=== PATIENT | female | born 1960 | race Caucasian/White ===

== ENCOUNTER 2022-07-19 11:15 | Outpatient (REF) | payer OTHER, SELFPAY ==
[2022-07-19 13:26] LABS: Anion Gap 16 (12-20); Carbon Dioxide 27 mmol/L (22-29); Chloride 104 mmol/L (96-108); Potassium 4.8 mmol/L (3.3-5.1); Sodium 142 mmol/L (135-145)
[2022-07-19 13:36] LABS: Carbamazepine Tegretol 5.4 mcg/mL (5.0-12.0)
[2022-07-19 13:55] LABS: Phenytoin Dilantin 10.8 ug/mL (10.0-20.0)
== END 2022-07-19 11:16 | disposition home or self-care (01) ==
LOC: HO.LAB 11:15
PROVIDERS: Visit Provider Psychiatry & Neurology Neurology
DX: G40.909 Epilepsy, unspecified, not intractable, without status epilepticus (principal)
CPT/HCPCS: 36415; 80051; 80156; 80185

== ENCOUNTER 2023-06-02 08:13 | Outpatient (REF) | payer OTHER, SELFPAY ==
[2023-06-02 09:48] LABS: Carbamazepine Tegretol 5.4 mcg/mL (5.0-12.0); Phenytoin Dilantin 6.5 ug/mL (10.0-20.0)
== END 2023-06-02 08:14 | disposition home or self-care (01) ==
LOC: HO.LAB 08:13
PROVIDERS: PCP Internal Medicine; Visit Provider Registered Nurse
DX: G40.909 Epilepsy, unspecified, not intractable, without status epilepticus (principal)
CPT/HCPCS: 36415; 80156; 80185

== ENCOUNTER 2023-06-03 09:55 | Outpatient (REF) | payer OTHER, SELFPAY ==
[2023-06-03 11:24] LABS: Phenytoin Dilantin 7.7 ug/mL (10.0-20.0)
== END 2023-06-03 09:56 | disposition home or self-care (01) ==
LOC: HO.LAB 09:55
PROVIDERS: PCP Internal Medicine; Visit Provider Registered Nurse
DX: G40.909 Epilepsy, unspecified, not intractable, without status epilepticus (principal)
CPT/HCPCS: 36415; 80185

== ENCOUNTER 2023-06-16 09:42 | Outpatient (REF) | payer OTHER, SELFPAY ==
[2023-06-16 11:11] LABS: Phenytoin Dilantin 12.1 ug/mL (10.0-20.0)
== END 2023-06-16 09:43 | disposition home or self-care (01) ==
LOC: HO.LAB 09:42
PROVIDERS: Family Medicine Adult Medicine; PCP Internal Medicine; Visit Provider Psychiatry & Neurology Neurology
DX: G40.909 Epilepsy, unspecified, not intractable, without status epilepticus (principal)
CPT/HCPCS: 36415; 80185

== ENCOUNTER 2024-11-26 11:08 | Outpatient (AMB) | payer OTHER, SELFPAY ==
--- NOTE | 2024-11-26 11:24 | A.OFFVIS_ITS ---
Vital Signs 11/26/24 11:28 Height 5 ft Intake Visit Reasons: 6M/SZ Accompanied by: Spouse Allergies No Known Allergies Allergy (Unverified 01/30/20 16:36) HPI Comments Details: Vertigo started back up on 10/24/2024 while at work and lasted about 2 weeks. Took meclizine twice a day for about 1 month. Retired on 11/07/2024. Had another episode of vertigo on 11/23/2024 that lasted one day. Took meclizine for one day. Having some dizziness when walking which she describes as everything swaying and swaying with it. Balance off at times. No recent falls. No seizures. Sleep was not so good. Wakes up during night and has trouble falling back to sleep. Had recurrence of vertigo 05/2023 and 06/2022. No seizures in years or episodes of word searching problems. 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 Mid to lower back pain is better, but acts up periodically. Short term memory problems are better. Depression under control. She reports no side effects from her medications. [facility] Medical History (Updated 11/26/24 @ 11:27 by Laura Bajwa CNP) MCI (mild cognitive impairment) Depression Seizures Review of Systems Const Denies chills, Denies daytime sleepiness, Reports difficulty sleeping, Denies fatigue, Denies fever(s), Denies frequent falls, Denies headache(s), Denies increased appetite, Denies poor appetite, Denies snoring, Denies weakness, Denies weight gain and Denies weight loss Eyes Denies loss of vision ENT Reports vertigo, Reports dizziness, Denies headache(s) and Denies neck pain Card Denies chest pain at rest, Denies chest pain with activity, Denies syncope, Denies leg edema, Denies palpitations, Denies dyspnea and Denies dyspnea on exertion Resp Denies cough, Denies dyspnea, Denies dyspnea on exertion and Denies snoring GI Denies abdominal pain, Denies constipation, Denies heartburn, Denies diarrhea and Denies nausea Denies urinary frequency, Denies urinary incontinence and Denies urinary urgency Musc Denies abnormal gait, Denies back pain, Denies myalgias, Denies arthralgias, Denies neck pain, Denies numbness and Denies tingling Neuro Denies abnormal gait, Reports vertigo, Reports dizziness, Denies syncope, Denies frequent falls, Denies headache(s), Denies lack of coordination, Denies loss of vision, Denies memory loss, Denies numbness, Denies Other visual disturbances, Denies restless legs, Denies seizure-like activity, Denies tingling, Denies paresthesias, Denies tremor(s) and Denies weakness Psych Denies anxiety, Denies depression, Denies auditory hallucinations, Denies memory loss and Denies visual hallucinations Endo Denies fatigue and Denies palpitations Physical Exam Const Other: General Appearance:? normal, in no acute distress. Heart:? S1, S2 normal, no murmurs. Lungs:? clear anteriorly and posteriorly. Musculoskeletal:? normal. Extremities:? no edema. Psych:? alert, oriented, cognitive function intact, cooperative with exam. Neuro Other: Abnormal Neurological Findings:?Broad based gait. Mental Status: alert and oriented X 3. Normal attention, orientation, memory, a nd affect. Cranial Nerves: Pupils are equal, round, and reactive to light. External ocular muscles are intact. Visual van are full, no ptosis. Face is symmetrical, no facial weakness or droop. Facial sensations are normal. Tongue protrudes in midline. Palate elevates symmetrically. Shoulder shrugging is normal Motor Examination: Normal muscle tone, bulk and strength. No atrophy or fasciculations. No drift of the extended upper extremities. DTR 2+. Plantars are flexor. Straight Leg Raisin degrees. Sensory Exam: Normal light touch, temperature, pinprick, vibration, and joint- position sensations. Rhomberg sign is absent. Coordination: No ataxia. No titubation. Hneapf-bz-ttyh, fgav-lauq-thid test, and rapid alternating movements were normal. Gait Exam: As above. Cerebellar Signs: Cwpjaf-ds-zbsd and yxdb-rj-qpod is normal. No dysdiadochokinesia. Extrapyramidal System: No tremor, rigidity with normal facial expressions. No bradykinesia. No bradyphrenia. Normal arm swing and posture. No propulsion or retropulsion. Speech: Normal. No dysphasia or dysarthria. Assessment & Plan Assessment & Plan (1) Seizures: Code(s): R56.9 - Unspecified convulsions Category: Medical Plan: Continue phenytoin 100mg 2 capsules twice a day. Continue carbamazepine 200mg 1 tablet three times a day. Dilantin and Tegrol labs ordered. (2) Vertigo: Code(s): R42 - Dizziness and giddiness Category: Medical Plan: Continue meclizine 25mg every 8 hours as needed. MRI brain ordered. Orders: Orders Phenytoin Dilantin Today R56.9 - Unspecified convulsions Carbamazepine Tegretol Today R56.9 - Unspecified convulsions MR head/brain wo con Today R42 - Dizziness and giddiness Coding Level of Care Code Est Pt Level 4 (73163) Diagnoses Seizures R56.9 Vertigo R42
--- OUTSIDE RECORDS SUMMARY | 2024-11-26 12:33 | XMS_ITS ---
Author Name [facility] Organization Unknown Care Team Organization Name Specialty Phone Email Start Date End Sumeet pleitez [facility] 01/31/2020 01/31/2020
--- OUTSIDE RECORDS SUMMARY | 2024-11-26 12:33 | XMS_ITS | Encounter Summary ---
Author Organization [facility] Address [address] [place] [address] Care Team Providers Care Chain Sales Consultant Name Role Phone Graciela Webb MD Primary Care Prov ider Reason for Referral * Consultation (Routine) - Closed Specialty Diagnoses / Procedures Referred By Contac t Referred To Contact Neurology Diagnoses Epilepsy, unspecified, not intractable, without status epilepticus (CMS/HCC V24, CMS/HCC V28) Graciela Webb MD [address] [place] [id number] Phone: tel: fax: Laura Bajwa NP [address] [place] [address] [place] [address] Phone: tel: fax: Referral ID Status Reason Start Date Expiration Date V isits Requested Visits Authorized [id number] Closed Specialty Services Required 11/21/2024 11/21/2025 6 6 Reason for Visit * Reason Onset Date Comments Referral 11/21/2024 Neurology Insura nhe Referral Encounter Details Date Type Department Care Team ([facility] st Contact Info) Description 11/21/2024 Telephone Adult Medicine [address] [phone] Graciela Webb MD [address] [place] [phone] Referral (Neurology Insurance Referral) Social History Tobacco Use Types Packs/Day Years Used Date Smoking Tobacco: Never Smokeless Tobacco: Never Alcohol Use Standard Drinks/Week Comments No 0 (1 standard drink = 0.6 oz pur e alcohol) Housing Instability Answer Date Recorde d Are you worried that in the next 2 months you may not have stable housing? No 05/19/2024 Food Access & Nutrition Answer Date Rec orded Do you have access to a vari ety of food including fruits and vegetables? Yes 05/19/2024 Access to Healthcare Answer Date Record ed Within the last 3 months, ho w many times did you visit the emergency department for your medical care? 0 05/19/2024 Health Literacy Answer Date Recorded How often do you need to hav e someone help you when you read instructions, pamphlets, or other written material from your doctor or pharmacy? Never 05/19/2024 Caregiver: How often do you need to have someone help you when you read instructions, pamphlets, or other written material from your doctor or pharmacy? Not on file 05/19/2024 Financial Risk Answer Date Recorded How hard is it for you to pa y for the very basics like food, housing, medical care, and air conditioning / heating? Not very hard 05/19/2024 Transportation Answer Date Recorded Has the lack of transportati on kept you from meetings, work, or from getting things needed for daily living? No Has the lack of transportati on kept you from medical appointments or from getting medications? No 05/19/2024 Social Isolation Answer Date Recorded How often do you feel lonely or isolated from th ose around you? Never 05/19/2024 Food Risk Answer Date Recorded Within the past 12 months we worried whether our food would run out before we got money to buy more. Never true 05/19/2024 Within the past 12 months th e food we bought just didn't last and we didn't have money to get more. Never true 05/19/2024 Dependent Care Answer Date Recorded Do you need help finding or paying for care for your loved ones. For example, early childhood specialist or elderly care for an older adult? No 05/19/2024 Education Answer Date Recorded Do you think completing more education or training, like finishing a GED, going to college, or learning a trade, would be helpful for you? No 05/19/2024 Employment and Income Answer Date Recor ded During the last four weeks, have you been actively looking for work? No 05/19/2024 Living Situation Answer Date Recorded What is your living situation? 0 05/19/2024 Comments No Sex and Gender Information Value Date Recorded Sex Assigned at Not on file Legal Sex Female 2:54 AM EST Gender Identity Not on file Sexual Orientation Not on file documented as of this encounter Progress Notes * Emi Judge - 11/21/2024 9:53 AM EDT What insurance does the patient have today? Payor: @[email or web address] Referrals cannot be processed if the insurance is not accurate. If the insurance listed above is NO BILLING INFORMATION FOUND FOR THIS ENCOUNTER then the patients correct insurance must be obtainedand registered in [facility] or their referral can not be processed. Name of person calling to request this referral? Fax -[facility] Sleep Referred To Provider (Include first and last name): Laura Bajwa NPI (if known): [phone] Order/Specialty requested neurology Chief Complaint (Note: This is not a body part or a procedure): G42.954 Has the patient seen provider for this problem/Dx before? Referred To Provider Address: Referred To Provider Referred To Provider Does patient have an appointment scheduled?: yes If yes, what is the date of the appointment?: 11/26/24 Is this a retro request? no Number of visits requested: 12 Is this appointment related to: MVA or worker compensation? no documented in this encounter Plan of Treatment Upcoming Encounters Date Type Department Care Team (Late st Contact Info) Description 12/18/2024 10:30 AM EDT Clinical Support Adult Medicine [place] - [address] [phone] 08/29/2025 1:40 PM EDT Appointment Radiology Department - [address] [phone] 09/08/2025 7:30 AM EDT Office Visit Adult [address] [phone] Graciela Webb MD [address] [place] [address] Scheduled Referrals Name Type Priority Associated Diagnoses Orde r Schedule Ambulatory referral to Neurology Outpatient Referral Routine Epilepsy, unspecified, not intractable, without status epilepticus ([facility] V24, [facility] V28) Expected: 11/21/2024, Expires: 11/21/2025 documented as of this encounter Visit Diagnoses Diagnosis Epilepsy, unspecified, not intractable, without status epilepticus ([facility] V24, [facility] V28)- Primary documented in this encounter Additional Health Concerns Assessment Noted Time PHQ-9 Depression Total Score: 0 05/19/19 2:59 PM EST documented as of this encounter Care Teams Chain Sales Consultant Relationship Specialty Start Date End Date Graciela Webb MD [address] [place] [address] PCP - General Internal Medicine 07/09/24 documented as of this encounter
--- OUTSIDE RECORDS SUMMARY | 2024-11-26 12:33 | XMS_ITS | Clinical Summary ---
Author Organization [facility] Address [address] [place] [address] Care Team Providers Care Can Reforming Machine Operator Name Role Phone Unavailable Primary Care Provider Unavailabl e Social History Tobacco Use Types Packs/Day Years Used Date Smoking Tobacco: Never Assessed Comments Unknown Sex and Gender Information Value Date Recorded Sex Assigned at Not on file Legal Sex Female 2:24 PM EDT Gender Identity Not on file Sexual Orientation Not on file Plan of Treatment Health Maintenance Due Date Last Done Comments Hepatitis C Virus Screening 1960 HIV Screening 11/16/1972 DTaP/Tdap/Td Vaccines (1 - Tdap) 11/16/1978 Pap Smear (Ages 21-65) 11/16/1980 Mammogram 1999 Colonoscopy 11/16/2004 Pneumococcal Vaccines 50+ (1 of 1 - PCV) 11/16/2009 Zoster (Shingles) Vaccine (1 of 2) 11/16/2009 COVID-19 Vaccine ( - 2023-2 5 season) 2024 DXA Bone Density (Females,Ag es 65 and older) 11/16/2024 Influenza Vaccine 12/13/2024 RSV Vaccine 60 years and old er and Patients (1 - 1-dose 75+ series) 11/16/2034 Hepatitis B Vaccines Aged Out No long er eligible based on patient's age to complete this topic Insurance MEDICAID OUT OF STATE [facility] WORKER'S COMP
== END 2024-11-26 11:47 | disposition home or self-care (01) ==
LOC: HO.HSM 11:09
PROVIDERS: PCP Internal Medicine; Referring Provider Internal Medicine; Visit Provider Registered Nurse
DX: R56.9 Unspecified convulsions (principal); R42 Dizziness and giddiness
CPT/HCPCS: 99214

== ENCOUNTER 2024-11-26 11:08 | Outpatient (REF) | payer MEDICARE, SELFPAY ==
[2024-11-26 13:03] LABS: Carbamazepine Tegretol 5.5 mcg/mL (5.0-12.0)
== END 2024-11-26 11:09 | disposition home or self-care (01) ==
LOC: HO.LAB 11:08
PROVIDERS: PCP Internal Medicine; Referring Provider Internal Medicine; Visit Provider Registered Nurse
DX: R42 Dizziness and giddiness (principal); R56.9 Unspecified convulsions; M54.50 Low back pain, unspecified; Z79.899 Other long term (current) drug therapy
CPT/HCPCS: 36415; 80156; 80185

== ENCOUNTER 2024-12-04 19:42 | Outpatient (REF) | payer MEDICARE, SELFPAY ==
--- NOTE | ~2024-12-04 | MR_ITS ---
EXAMINATION: MR BRAIN WITHOUT IV CONTRAST HISTORY: R42 - Dizziness and giddiness TECHNIQUE: Sagittal T1, coronal FLAIR and T2, and axial T1, FLAIR, T2, gradient echo, and diffusion weighted MR images of the brain were obtained. COMPARISON: Comparison is made with the prior examination dated 01/07/2020. FINDINGS: The pituitary is normal in size. The cerebellar tonsils are normally located. 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 There are scattered periventricular and subcortical white matter hyperintensities on the FLAIR and T2-weighted images which are nonspecific, but often seen in the setting of small vessel ischemic disease. There is no mass effect or midline shift. The ventricular system is normal in size and configuration. No intra or extra-axial fluid collections are identified. There are no foci of restricted diffusion. Normal vascular flow voids are noted in the basilar and carotid arteries. The visualized paranasal sinuses are clear. 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 No acute intracranial abnormality. Electronically signed by: Carlos Savage MD 12/05/2024 07:21 AM EDT
== END 2024-12-04 19:43 | disposition home or self-care (01) ==
LOC: HO.MRI 19:42
PROVIDERS: PCP Internal Medicine; Visit Provider Registered Nurse
DX: R42 Dizziness and giddiness (principal)
CPT/HCPCS: 70551

== ENCOUNTER → 2024-12-04 19:43 | Outpatient (BNV) | payer MEDICARE, SELFPAY | PROVIDERS: PCP Internal Medicine; Visit Provider Radiology Diagnostic Radiology | DX: Q04.8 Other specified congenital malformations of brain (principal) | CPT/HCPCS: 70551 ==

== ENCOUNTER 2025-01-10 11:31 | Outpatient (AMB) | payer MEDICARE, SELFPAY ==
--- NOTE | 2025-01-10 12:02 | MHC.OFFVIS ---
Vital Signs 01/10/25 12:13 01/10/25 12:17 Height 5 ft BP 171/84 H 166/85 H Position Sitting Standing Intake Visit Reasons: sooner appt Allergies No Known Allergies Allergy (Unverified 01/10/25 12:07) Medication List - Last Reconciled 01/10/25 by Laura Bajwa CNP carbamazepine 200 mg PO TID ibuprofen 200 mg PO Q6H PRN meclizine 25 mg PO TID PRN multivitamin 1 tab PO DAILY phenytoin sodium extended 200 mg (2 x 100 mg) PO BID 90 days HPI Comments Details: She has been taking meclizine three times a day. Feeling of room swaying or spinning and feeling off balance happening less. Notices more often when it is dark. Had an episode a few weeks ago when standing in kitchen when it was dark, had room spinning and fell. No further falls. Had brief episode today of hallway shifting and swaying after getting off elevator. No seizures. She was scheduled for cataract surgery on 03/19/2025 and 04/16/2025. Had recurrence of vertigo on 10/24/2024 that lasted 2 weeks, took meclizine twice a day for about a month. Had another episode of vertigo on 11/23/2024 that lasted one day. Started with some dizziness when walking which she described as everything swaying and swaying with it in 11/2024. Balance off at times. No seizures. Retired on 11/07/2024. Had recurrence of vertigo 05/2023 and 06/2022. No seizures in years or episodes of word searching problems. Mid to lower back pain is better, but acts up periodically. Short term memory problems are better. Depression under control. She reports no side effects from her medications. [facility] Medical History (Updated 01/10/25 @ 12:34 by Laura Bajwa CNP) MCI (mild cognitive impairment) Depression Seizures Review of Systems Const Denies chills, Denies daytime sleepiness, Reports difficulty sleeping, Denies fatigue, Denies fever(s), Denies frequent falls, Denies headache(s), Denies increased appetite, Denies poor appetite, Denies snoring, Denies weakness, Denies weight gain and Denies weight loss Eyes Denies loss of vision ENT Reports vertigo, Reports dizziness, Denies headache(s) and Denies neck pain Card Denies chest pain at rest, Denies chest pain with activity, Denies syncope, Denies leg edema, Denies palpitations, Denies dyspnea and Denies dyspnea on exertion Resp Denies cough, Denies dyspnea, Denies dyspnea on exertion and Denies snoring GI Denies abdominal pain, Denies constipation, Denies heartburn, Denies diarrhea and Denies nausea Denies urinary frequency, Denies urinary incontinence and Denies urinary urgency Musc Denies abnormal gait, Denies back pain, Denies myalgias, Denies arthralgias, Denies neck pain, Denies numbness and Denies tingling Neuro Denies abnormal gait, Reports vertigo, Reports dizziness, Denies syncope, Denies frequent falls, Denies headache(s), Denies lack of coordination, Denies loss of vision, Denies memory loss, Denies numbness, Denies Other visual disturbances, Denies restless legs, Denies seizure-like activity, Denies tingling, Denies paresthesias, Denies tremor(s) and Denies weakness Psych Denies anxiety, Denies depression, Denies auditory hallucinations, Denies memory loss and Denies visual hallucinations Endo Denies fatigue and Denies palpitations Physical Exam Const Other: General Appearance:? normal, in no acute distress. Heart:? S1, S2 normal, no murmurs. Lungs:? clear anteriorly and posteriorly. Musculoskeletal:? normal. Extremities:? no edema. Psych:? alert, oriented, cognitive function intact, cooperative with exam. Neuro Other: Abnormal Neurological Findings:?Broad based gait. Mental Status: alert and oriented X 3. Normal attention, orientation, memory, and affect. Cranial Nerves: Pupils are equal, round, and reactive to light. External ocular muscles are intact. Visual van are full, no ptosis. Face is symmetrical, no facial weakness or droop. Facial sensations are normal. Tongue protrudes in midline. Palate elevates symmetrically. Shoulder shrugging is normal Motor Examination: Normal muscle tone, bulk and strength. No atrophy or fasciculations. No drift of the extended upper extremities. DTR 2+. Plantars are flexor. Sensory Exam: Normal light touch, temperature, pinprick, vibration, and joint-position sensations. Rhomberg sign is absent. Coordination: No ataxia. No titubation. Gait Exam: As above. Cerebellar Signs: Vdvawm-yo-zjun is okay. Extrapyramidal System: No tremor, rigidity with normal facial expressions. No bradykinesia. No bradyphrenia. Normal arm swing and posture. No propulsion or retropulsion. Speech: Normal. Results Reviewed Results Reviewed: [address] [address] Magnetic Resonance Report Signed Patient: Stephen Vo MR#: [id number] : 1960 Acct:[id number] Age/Sex: 64 / F ADM Date: 12/04/24 Loc: HO.MRI Attending Dr: Laura Bajwa CNP Ordering Physician: Laura Bajwa CNP Date of Service: 12/04/24 Procedure(s): MR head/brain wo con Accession Number(s): [id number] cc: Graciela Hernandez MD; Laura Bajwa CNP~ EXAMINATION: MR BRAIN WITHOUT IV CONTRAST HISTORY: R42 - Dizziness and giddiness TECHNIQUE: Sagittal T1, coronal FLAIR and T2, and axial T1, FLAIR, T2, gradient echo, and diffusion weighted MR images of the brain were obtained. COMPARISON: Comparison is made with the prior examination dated 01/07/2020. FINDINGS: The pituitary is normal in size. The cerebellar tonsils are normally located. 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 There are scattered periventricular and subcortical white matter hyperintensities on the FLAIR and T2-weighted images which are nonspecific, but often seen in the setting of small vessel ischemic disease. There is no mass effect or midline shift. The ventricular system is normal in size and configuration. No intra or extra-axial fluid collections are identified. There are no foci of restricted diffusion. Normal vascular flow voids are noted in the basilar and carotid arteries. The visualized paranasal sinuses are clear. 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 No acute intracranial abnormality. Electronically signed by: Carlos Savage MD 12/05/2024 07:21 AM EDT RP Laboratory Tests 11/26/24 12:06 Phenytoin 19.9 Carbamazepine 5.5 Assessment & Plan Assessment & Plan (1) Seizures: Code(s): R56.9 - Unspecified convulsions Category: Medical Plan: MRI and lab results reviewed. EEG ordered. Continue phenytoin 100mg 2 capsules twice a day. Continue carbamazepine 200mg 1 tablet three times a day. (2) Vertigo: Code(s): R42 - Dizziness and giddiness Category: Medical Plan: Continue meclizine 25mg every 8 hours as needed. (3) Hypertension: Code(s): I10 - Essential (primary) hypertension Category: Medical Qualifiers: Hypertension type: unspecified Qualified Code(s): I10 - Essential (primary) hypertension Plan: She was advised to follow up with PCP for management of elevated blood pressure. Her symptoms may be related to elevated blood pressure. Coding Level of Care Code Est Pt Level 4 (24269) Diagnoses Seizures R56.9 Vertigo R42 Hypertension, unspecified type I10 Hypertension type: unspecified
[2025-01-10 12:13] VITALS: BP 171/84
[2025-01-10 12:17] VITALS: BP 166/85
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
--- OUTSIDE RECORDS SUMMARY | 2025-01-10 12:30 | XMS_ITS | Clinical Summary ---
Author Organization [facility] Address [address] [place] [address] Care Team Providers Care Life Science Teacher Name Role Phone Unavailable Primary Care Provider Unavailabl e Social History Tobacco Use Types Packs/Day Years Used Date Smoking Tobacco: Never Assessed Comments Unknown Sex and Gender Information Value Date Recorded Sex Assigned at Not on file Legal Sex Female 2:24 PM EDT Gender Identity Not on file Sexual Orientation Not on file Plan of Treatment Health Maintenance Due Date Last Done Comments Advance Care Planning 1960 Hepatitis C Virus Screening 1960 HIV Screening [...] this topic Insurance MEDICAID OUT OF STATE [facility] [place] [facility] [place] [facility] [facility]
== END 2025-01-10 12:21 | disposition home or self-care (01) ==
LOC: HO.HSM 11:31
PROVIDERS: PCP Internal Medicine; Visit Provider Registered Nurse
DX: R56.9 Unspecified convulsions (principal); R42 Dizziness and giddiness; I10 Essential (primary) hypertension
CPT/HCPCS: 99214

== ENCOUNTER → 2025-01-10 11:31 | Outpatient (BNVA) | payer MEDICARE, SELFPAY | PROVIDERS: PCP Internal Medicine; Visit Provider Registered Nurse | DX: R56.9 Unspecified convulsions (principal); R42 Dizziness and giddiness; I10 Essential (primary) hypertension | CPT/HCPCS: 99212 ==

== ENCOUNTER 2025-01-30 09:35 | Outpatient (REF) | payer MEDICARE, SELFPAY ==
--- NOTE | 2025-01-30 11:03 | EEG_ITS ---
Roomed Performed:?402 Reason: unspecific convulsions History: depression, seizures - Patient reports episodes of dizziness and feeling off balance, last episode being today walking down hallway. Patient reports feeling is different than vertigo that she has previously experienced. This feeling started in October of this year.? Medication: carbamazepine, ibuprofen, meclizine, multivitamin, phenytoin sodium Technical description Photic stimulation: completed Hyperventilation:?performed - good effort Behavioral state: pleasant State of Consciousness: awake and drowsy Skull defect: none Sedation: no Handedness: left Duration of study:?32 min 10 sec Description: This is a 16 channel EEG with an EKG lead. Patient is reported awake and drowsy during the tracing. Background EEG rhythm is 10-12 hertz 5-200 microvolt posteriorly and lower amplitude fast anteriorly. Photic stimulation does not produce any significant abnormality. Hyperventilation is unremarkable. Cardiac lead does not reveal any significant abnormality. No definite sharp wave spikes or paroxysmal tendency noted. Impression: No significant abnormality noted on this EEG. MTDD
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
--- OUTSIDE RECORDS SUMMARY | 2025-01-30 11:14 | XMS_ITS | Clinical Summary ---
Author Organization [facility] Address [address] [place] [address] Care Team Providers Care Media Services Specialist Name Role Phone Unavailable Primary Care Provider [...] Zoster (Shingles) Vaccine (1 of 2) 11/16/2009 DXA Bone Density (Females,Ag es 65 and older) 11/16/2024 Influenza Vaccine 12/13/2024 COVID-19 Vaccine ( - 2023-2 5 season) 2025 RSV Vaccine 60 years and old er and Patients (1 - 1-dose 75+ series) 11/16/2034 Hepatitis B Vaccines Aged Out No long er eligible based on patient's age to complete this topic Insurance [place]ICAID OUT OF [place] [facility] [facility] [place]
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
== END 2025-01-30 09:36 | disposition home or self-care (01) ==
LOC: HO.NEURO 09:35
PROVIDERS: PCP Internal Medicine; Visit Provider Psychiatry & Neurology Neurology
DX: R56.9 Unspecified convulsions (principal)
CPT/HCPCS: 95816

== ENCOUNTER → 2025-01-30 11:03 | Outpatient (BNV) | payer MEDICARE, SELFPAY | PROVIDERS: PCP Internal Medicine; Visit Provider Psychiatry & Neurology Neurology | DX: R56.9 Unspecified convulsions (principal) | CPT/HCPCS: 95816 ==

== ENCOUNTER 2025-03-07 10:30 | Outpatient (AMB) | payer MEDICARE, SELFPAY ==
--- NOTE | 2025-03-07 10:56 | A.OFFVIS_ITS ---
Vital Signs 03/07/25 11:09 BP 170/70 H Position Sitting Pulse 79 Intake Visit Reasons: 2 MO FU Accompanied by: Spouse Allergies No Known Allergies Allergy (Unverified 03/07/25 10:59) Medication List - Last Reconciled 03/07/25 by Laura Bajwa CNP carbamazepine 200 mg PO TID 90 days ibuprofen 200 mg PO Q6H PRN meclizine 25 mg PO TID PRN 30 days multivitamin 1 tab PO DAILY phenytoin sodium extended 200 mg (2 x 100 mg) PO BID 90 days HPI Comments Details: She was doing better. Taking meclizine only at bedtime now for last 3 weeks. No significant episodes of vertigo. No falls. No seizures. Sleep was not so good. She was scheduled for cataract surgery on 03/19/2025 and 04/16/2025. Feeling of room swaying or spinning and feeling off balance happening less with meclizine three times a day, notices more often when it is dark. Had an episode in 12/2024 when standing in kitchen when it was dark, had room spinning and fell. Had brief episode on 01/10/[address]25 of [address] shifting and swaying after getting off elevator. No seizures. Had recurrence of vertigo on 10/24/2024 that lasted 2 weeks, took meclizine twice a day for about a month. Had another episode of vertigo on 11/23/2024 that lasted one day. Started with some dizziness when walking which she described as everything swaying and swaying with it in 11/2024. Balance off at times. No seizures. Retired on 11/07/2024. Had recurrence of vertigo 05/2023 and 06/2022. No seizures in years or episodes of word searching problems. Mid to lower back pain is better, but acts up periodically. Short term memory problems are better. Depression under control. She reports no side effects from her medications. [facility] Medical History (Updated 01/10/25 @ 12:34 by Laura Bajwa CNP) MCI (mild cognitive impairment) Depression Seizures Review of Systems Const Denies chills, Denies daytime sleepiness, Reports difficulty sleeping, Denies fatigue, Denies fever(s), Denies frequent falls, Denies headache(s), Denies increased appetite, Denies poor appetite, Denies snoring, Denies weakness, Denies weight gain and Denies weight loss Eyes Denies loss of vision ENT Reports vertigo, Reports dizziness, Denies headache(s) and Denies neck pain Card Denies chest pain at rest, Denies chest pain with activity, Denies syncope, Denies leg edema, Denies palpitations, Denies dyspnea and Denies dyspnea on exertion Resp Denies cough, Denies dyspnea, Denies dyspnea on exertion and Denies snoring GI Denies abdominal pain, Denies constipation, Denies heartburn, Denies diarrhea and Denies nausea Denies urinary frequency, Denies urinary incontinence and Denies urinary urgency Musc Denies abnormal gait, Denies back pain, Denies myalgias, Denies arthralgias, Denies neck pain, Denies numbness and Denies tingling Neuro Denies abnormal gait, Reports vertigo, Reports dizziness, Denies syncope, Denies frequent falls, Denies headache(s), Denies lack of coordination, Denies loss of vision, Denies memory loss, Denies numbness, Denies Other visual disturbances, Denies restless legs, Denies seizure-like activity, Denies tingling, Denies paresthesias, Denies tremor(s) and Denies weakness Psych Denies anxiety, Denies depression, Denies auditory hallucinations, Denies memory loss and Denies visual hallucinations Endo Denies fatigue and Denies palpitations Physical Exam Const Other: General Appearance:? normal, in no acute distress. Heart:? S1, S2 normal, no murmurs. Lungs:? clear anteriorly and posteriorly. Musculoskeletal:? normal. Extremities:? no edema. Psych:? alert, oriented, cognitive function intact, cooperative with exam. Neuro Other: Abnormal Neurological Findings:?Broad based gait. Mental Status: alert and oriented X 3. Normal attention, orientation, memory, and affect. Cranial Nerves: Pupils are equal, round, and reactive to light. External ocular muscles are intact. Visual van are full, no ptosis. Face is symmetrical, no facial weakness or droop. Facial sensations are normal. Tongue protrudes in midline. Palate elevates symmetrically. Shoulder shrugging is normal Motor Examination: Normal muscle tone, bulk and strength. No atrophy or fasciculations. No drift of the extended upper extremities. DTR 2+. Plantars are flexor. Sensory Exam: Normal light touch, temperature, pinprick, vibration, and joint- position sensations. Rhomberg sign is absent. Coordination: No ataxia. No titubation. Gait Exam: As above. Cerebellar Signs: Xnaevp-hk-[id number] is okay. Extrapyramidal System: No tremor, rigidity with normal facial expressions. No bradykinesia. No bradyphrenia. Normal arm swing and posture. No propulsion or retropulsion. Speech: Normal. Results Reviewed Results Reviewed: [address] [address] Electroencephalogram Report Signed Patient: Stephen Vo MR#: [id number] : 1960 Acct:[id number] Age/Sex: 64 / F ADM Date: 01/30/25 Loc: HO.NEURO Attending Dr: Analia Mcwilliams MD Ordering Physician: Laura Bajwa CNP Date of Service: 01/30/25 Procedure(s): EEG electroencephalogram Accession Number(s): [id number] cc: Graciela Hernandez MD~ Reason for Exam: R56.9 - Unspecified convulsions Roomed Performed:?402 Reason: unspecific convulsions History: depression, seizures - Patient reports episodes of dizziness and feeling off balance, last episode being today walking down hallway. Patient reports feeling is different than vertigo that she has previously experienced. This feeling started in October of this year.? Medication: carbamazepine, ibuprofen, meclizine, multivitamin, phenytoin sodium Technical description Photic stimulation: completed Hyperventilation:?performed - good effort Behavioral state: pleasant State of Consciousness: awake and drowsy Skull defect: none Sedation: no Handedness: left Duration of study:?32 min 10 sec Description: This is a 16 channel EEG with an EKG lead. Patient is reported awake and drowsy during the tracing. Background EEG rhythm is 10-12 hertz 5-200 microvolt posteriorly and lower amplitude fast anteriorly. Photic stimulation does not produce any significant abnormality. Hyperventilation is unremarkable. Cardiac lead does not reveal any significant abnormality. No definite sharp wave spikes or paroxysmal tendency noted. Impression: No significant abnormality noted on this EEG. 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 No acute intracranial abnormality. Laboratory Tests 11/26/24 12:06 Phenytoin 19.9 Carbamazepine 5.5 Assessment & Plan Assessment & Plan (1) Seizures: Code(s): R56.9 - Unspecified convulsions Category: Medical Plan: EEG results reviewed. Continue phenytoin 100mg 2 capsules twice a day. Continue carbamazepine 200mg 1 tablet three times a day. (2) Vertigo: Code(s): R42 - Dizziness and giddiness Category: Medical Plan: Continue meclizine 25mg every 8 hours as needed. (3) Hypertension: Code(s): I10 - Essential (primary) hypertension Category: Medical Qualifiers: Hypertension type: unspecified Qualified Code(s): I10 - Essential (primary) hypertension Plan: She was advised to follow up with PCP for management of elevated blood pressure. ER precautions reviewed. Coding Level of Care Code Est Pt Level 4 (76508) Diagnoses Seizures R56.9 Vertigo R42 Hypertension, unspecified type I10 Hypertension type: unspecified
[2025-03-07 11:09] VITALS: BP 170/70; PULSE 79
--- OUTSIDE RECORDS SUMMARY | 2025-03-07 12:05 | XMS_ITS | Clinical Summary ---
Author Organization [facility] Address [address] [place] [address] Care Team Providers Care Heavy Equipment Rental Manager Name Role Phone Unavailable Primary Care Provider [...] - 2023-2 5 season) 2025 RSV Vaccine 50 years and old er and Patients (1 - 1-dose 75+ series) 11/16/2034 Hepatitis B Vaccines Aged Out No long er eligible based on patient's age to complete this topic Insurance MEDICAID OUT OF STATE [facility] WORKER'S COMP
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
== END 2025-03-07 11:09 | disposition home or self-care (01) ==
LOC: HO.HSM 10:30
PROVIDERS: PCP Internal Medicine; Visit Provider Registered Nurse
DX: R56.9 Unspecified convulsions (principal); R42 Dizziness and giddiness; I10 Essential (primary) hypertension
CPT/HCPCS: 99214

== ENCOUNTER → 2025-03-07 10:30 | Outpatient (BNVA) | payer MEDICARE, SELFPAY | PROVIDERS: PCP Internal Medicine; Visit Provider Registered Nurse | DX: R56.9 Unspecified convulsions (principal); R42 Dizziness and giddiness; I10 Essential (primary) hypertension | CPT/HCPCS: 99212 ==